=== PATIENT | female | born 1965 | race Caucasian/White ===

== ENCOUNTER 2016-10-28 14:39 | Emergency (ER) | payer MEDICAID ==
[~2016-10-28] VITALS: Ht 154.9 cm; Wt 78.5 kg
[2016-10-28 14:56] VITALS: BP_SYST 157
[2016-10-28 16:21] VITALS: BP_SYST 142
== END 2016-10-28 16:19 | disposition home or self-care (01) ==
LOC: SED 14:39
DX: L03.116 Cellulitis of left lower limb (principal)
CPT/HCPCS: 99284

== ENCOUNTER 2016-11-29 15:15 | Emergency (ER) | payer MEDICAID ==
[~2016-11-29] VITALS: Ht 154.9 cm; Wt 73.5 kg
[2016-11-29 15:23] VITALS: BP 162/97; PULSE 96; RESP 18; TEMP 98.3; O2SAT 98
[2016-11-29] MEDS ORDERED: NACL 0.9% 500 ML IV ONE (16:00)
[2016-11-29] MEDS ORDERED: PANTOPRAZOLE SODIUM 40 MG/VIAL (PROTONIX) IVP ONE (16:00)
[2016-11-29 16:15] LABS: BILIRUBIN,URINE NEGATIVE (NEGATIVE); BLOOD, URINE NEGATIVE (NEGATIVE); CLARITY/URINE SL HAZY (CLEAR); COLOR,URINE YELLOW (YELLOW); GLUCOSE,URINE NEGATIVE (NEGATIVE); KETONES,URINE NEGATIVE (NEGATIVE); LEUKOCYTE ESTERASE ,URINE NEGATIVE (NEGATIVE); NITRITE, URINE NEGATIVE (NEGATIVE); PH,URINE 5.5 (5.0-8.0); PROTEIN URINE NEGATIVE (NEGATIVE); UROBILINOGEN,URINE 0.2 (0.2-1.0)
[2016-11-29] MEDS ORDERED: MAG HYDROX/AL HYDROX/SIMETH 30 ML, LIDOCAINE VISCOUS 2% 15ML (PO) 10 ML, BELLADONNA ALK... PO ONE ×3 (16:15)
[2016-11-29 16:23] LABS: BASOPHILS % (AUTO) 0.6 % (0.0-2.0); EOSINOPHILS # (AUTO) 0.1 K/uL (0.0-0.4); EOSINOPHILS % (AUTO) 2.1 % (0.0-4.0); HEMATOCRIT 38.8 % (36-48); HEMOGLOBIN 13.1 g/dL (12.0-16.0); LYMPHOCYTES # (AUTO) 1.3 K/uL (1.0-5.5); LYMPHOCYTES % (AUTO) 26.2 % (20.5-51.5); MEAN CORPUSCULAR HEMOGLOBIN 28 pg (27-31); MEAN CORPUSCULAR HGB CONC 34 % (32-36); MEAN CORPUSCULAR VOLUME 84 fL (79.0-98.0); MONOCYTES # (AUTO) 0.4 K/uL (0.0-1.0); MONOCYTES % (AUTO) 8.3 % (1.7-9.3); NEUTROPHILS # (AUTO) 3.2 K/uL (1.8-7.7); NEUTROPHILS % (AUTO) 62.8 % (40.0-70.0); PLATELET COUNT (AUTO) 418 K/uL (130-430); RED BLOOD CELL COUNT(AUTO) 4.64 MIL/uL (4.2-6.2); RED CELL DISTRIBUTION WIDTH 12.1 % (9.0-15.0)
[2016-11-29 16:48] LABS: CALCIUM 9.2 mg/dL (8.4-11.0); CREATININE 0.78 mg/dL (0.55-1.30); POTASSIUM 3.8 mmol/L (3.5-5.1)
[2016-11-29 16:52] LABS: ALBUMIN 3.8 g/dL (3.4-4.8); TOTAL BILIRUBIN 0.3 mg/dL (0.0-1.0); TOTAL PROTEIN, SERUM 7.7 g/dL (6.4-8.3)
[2016-11-29 17:20] VITALS: BP 142/82; PULSE 86; RESP 18; TEMP 98.3; O2SAT 98
== END 2016-11-29 17:20 | disposition home or self-care (01) ==
LOC: SED 15:15
DX: R10.13 Epigastric pain (principal); R10.12 Left upper quadrant pain; I10 Essential (primary) hypertension; Z90.711 Acquired absence of uterus with remaining cervical stump
CPT/HCPCS: 36415; 74176; 80053; 81003; 81025; 83605; 83690; 85025; 87040; 96361; 96374; 99285; C9113; J2001; J7030

== ENCOUNTER 2017-05-19 14:06 | Inpatient (IN) | payer MEDICAID ==
[~2017-05-19] VITALS: Ht 154.9 cm; Wt 73.5 kg
[2017-05-19 14:13] VITALS: BP_SYST 154
[2017-05-19] MEDS ORDERED: ASPIRIN 81 MG TAB.CHEW PO ONE (14:30)
[2017-05-19 14:37] LABS: BASOPHILS # (AUTO) 0.1 K/uL (0.0-0.2); BASOPHILS % (AUTO) 1.6 % (0.0-2.0); EOSINOPHILS # (AUTO) 0.1 K/uL (0.0-0.4); EOSINOPHILS % (AUTO) 1.1 % (0.0-4.0); HEMATOCRIT 38.7 % (36-48); LYMPHOCYTES # (AUTO) 1.1 K/uL (1.0-5.5); LYMPHOCYTES % (AUTO) 14.7 % (20.5-51.5); MEAN CORPUSCULAR HEMOGLOBIN 28 pg (27-31); MEAN CORPUSCULAR HGB CONC 34 % (32-36); MEAN CORPUSCULAR VOLUME 84 fL (79.0-98.0); MONOCYTES # (AUTO) 0.5 K/uL (0.0-1.0); MONOCYTES % (AUTO) 6.9 % (1.7-9.3); NEUTROPHILS # (AUTO) 5.6 K/uL (1.8-7.7); NEUTROPHILS % (AUTO) 75.7 % (40.0-70.0); PLATELET COUNT (AUTO) 419 K/uL (130-430); RED BLOOD CELL COUNT(AUTO) 4.61 MIL/uL (4.2-6.2); RED CELL DISTRIBUTION WIDTH 12.6 % (9.0-15.0); WHITE BLOOD COUNT (AUTO) 7.4 K/uL (4.8-10.8)
[2017-05-19 15:12] LABS: CALCIUM 8.8 mg/dL (8.4-11.0); CREATININE 0.77 mg/dL (0.55-1.30); POTASSIUM 3.7 mmol/L (3.5-5.1)
[2017-05-19 15:21] LABS: INR 0.9 (0.8-1.2); PROTHROMBIN TIME 9.2 SECS (9.5-12.5)
[2017-05-19] MEDS ORDERED: INSULIN REGULAR, HUMAN 100 UNITS/ML, 10 ML VIAL (novoLIN R) SUBCUT PRN (15:45)
[2017-05-19 16:12] VITALS: BP_SYST 134
[2017-05-19] MEDS ORDERED: GLUCOSE 15 GM GEL (in 37.5 GM TUBE) PO PRN ×2 (16:30)
[2017-05-19] MEDS ORDERED: DEXTROSE 50%-WATER 50 ML DISP.SYRIN IVP PRN ×2 (16:30)
[2017-05-19] MEDS ORDERED: NITROGLYCERIN 0.4 MG TAB.SUBL SL PRN (19:15)
[2017-05-19] MEDS ORDERED: ZOLPIDEM TARTRATE 5 MG TABLET PO PRN (19:15)
[2017-05-19] MEDS ORDERED: ACETAMINOPHEN 325 MG TABLET PO PRN ×2 (19:15→20:00)
[2017-05-19] MEDS ORDERED: LOSA25TA3 PO (19:25)
[2017-05-19 20:00] VITALS: BP_SYST 120
[2017-05-19] MEDS: FAMOTIDINE 20 MG TABLET PO SCH (20:20)
[2017-05-19] MEDS: LOSARTAN POTASSIUM 50 MG TABLET (COZAAR) PO SCH (20:33)
[2017-05-19] MEDS ORDERED: LOSARTAN POTASSIUM 50 MG TABLET (COZAAR) PO SCH (21:00)
[2017-05-20] VITALS: BP_SYST 118
[2017-05-20 04:00] VITALS: BP_SYST 137
[2017-05-20 07:07] LABS: THYROID STIMULATING HORMONE 1.38 uIu/mL (0.36-3.74)
[2017-05-20 07:49] LABS: CHOLESTEROL 261 mg/dL (<200); HDL CHOLESTEROL 57 mg/dL (>55); LDL CHOLESTEROL 171 mg/dL (<100); TRIGLYCERIDES 164 mg/dL (30-150)
[2017-05-20 08:00] VITALS: BP_SYST 134
[2017-05-20] MEDS ORDERED: ASPIRIN 81 MG TABLET(ECOTRIN) PO SCH (09:00)
[2017-05-20] MEDS: FAMOTIDINE 20 MG TABLET PO SCH (09:20)
[2017-05-20] MEDS: LOSARTAN POTASSIUM 50 MG TABLET (COZAAR) PO SCH (09:20)
[2017-05-20 13:06] VITALS: BP_SYST 117
[2017-05-20] MEDS ORDERED: FAMO20TA98 PO (13:30)
[2017-05-20 13:41] VITALS: BP_SYST 120
[2017-05-20 16:03] VITALS: BP_SYST 132
== END 2017-05-20 16:14 | disposition home or self-care (01) | DRG 203 ==
LOC: SED 14:06 → STU 15:40
PROVIDERS: ADMIT Internal Medicine; ATTEND Internal Medicine
DX: R07.89 Other chest pain (principal); I10 Essential (primary) hypertension; K21.9 Gastro-esophageal reflux disease without esophagitis; E78.5 Hyperlipidemia, unspecified; E66.9 Obesity, unspecified; Z68.30 Body mass index [BMI] 30.0-30.9, adult; Z82.49 Family history of ischemic heart disease and other diseases of the circulatory system; Z79.899 Other long term (current) drug therapy; Z90.722 Acquired absence of ovaries, bilateral; Z90.710 Acquired absence of both cervix and uterus
CPT/HCPCS: 36415; 71010; 80048; 80061; 82962; 83735-TC; 83880; 84443-TC; 84484; 85025; 85379; 85610-TC; 85730-TC; 93005; 93306; 99285; J1815

== ENCOUNTER 2019-11-05 12:18 | Emergency (ER) | payer MEDICAID ==
[~2019-11-05] VITALS: Ht 154.9 cm; Wt 68.9 kg
[~2019-11-05 12:18] MED LIST: FAMO-132 PO; LOSA25TA3 PO
[2019-11-05 12:36] VITALS: BP_SYST 131
[2019-11-05 13:25] LABS: BASOPHILS % (AUTO) 0.4 % (0.0-2.0); EOSINOPHILS # (AUTO) 0.1 K/uL (0.0-0.4); EOSINOPHILS % (AUTO) 1.6 % (0.0-4.0); HEMATOCRIT 37.4 % (36-48); HEMOGLOBIN 12.5 g/dL (12.0-16.0); LYMPHOCYTES # (AUTO) 1.3 K/uL (1.0-5.5); LYMPHOCYTES % (AUTO) 25.4 % (20.5-51.5); MEAN CORPUSCULAR HEMOGLOBIN 28 pg (27-31); MEAN CORPUSCULAR HGB CONC 33 % (32-36); MEAN CORPUSCULAR VOLUME 83 fL (79.0-98.0); MONOCYTES # (AUTO) 0.3 K/uL (0.0-1.0); MONOCYTES % (AUTO) 5.8 % (1.7-9.3); NEUTROPHILS # (AUTO) 3.5 K/uL (1.8-7.7); NEUTROPHILS % (AUTO) 66.8 % (40.0-70.0); PLATELET COUNT (AUTO) 511 K/uL (130-430); RED BLOOD CELL COUNT(AUTO) 4.49 MIL/uL (4.2-6.2); RED CELL DISTRIBUTION WIDTH 12.7 % (9.0-15.0); WHITE BLOOD COUNT (AUTO) 5.3 K/uL (4.8-10.8)
[2019-11-05 13:38] LABS: CALCIUM 8.6 mg/dL (8.4-11.0); CREATININE 0.74 mg/dL (0.55-1.30); POTASSIUM 4.2 mmol/L (3.5-5.1)
[2019-11-05 13:52] LABS: ALBUMIN 3.5 g/dL (3.4-4.8); TOTAL BILIRUBIN 0.2 mg/dL (0.0-1.0)
[2019-11-05 14:52] VITALS: BP_SYST 154
== END 2019-11-05 14:54 | disposition home or self-care (01) ==
LOC: SED 12:18
DX: L02.31 Cutaneous abscess of buttock (principal); I10 Essential (primary) hypertension; Z88.8 Allergy status to other drugs, medicaments and biological substances; Z79.899 Other long term (current) drug therapy
CPT/HCPCS: 36415; 80053; 83605; 85025; 87040; 96365; 99284; J1956

== ENCOUNTER 2019-11-11 16:51 | Emergency (ER) | payer MEDICAID ==
[~2019-11-11] VITALS: Ht 162.6 cm; Wt 79.4 kg
[2019-11-11 16:52] VITALS: BP_SYST 146
[2019-11-11] MEDS ORDERED: LIDOCAINE/EPI 1% 1:100000 20 ML VIAL INJ ONE (17:15)
[2019-11-11 17:56] VITALS: BP_SYST 131
== END 2019-11-11 17:56 | disposition home or self-care (01) ==
LOC: SED 16:51
DX: L02.31 Cutaneous abscess of buttock (principal); I10 Essential (primary) hypertension; Z88.8 Allergy status to other drugs, medicaments and biological substances; Z79.899 Other long term (current) drug therapy
CPT/HCPCS: 99284

== ENCOUNTER 2019-11-21 17:37 | Emergency (ER) | payer MEDICAID ==
[~2019-11-21] VITALS: Ht 152.4 cm; Wt 68.0 kg
[2019-11-21 17:40] VITALS: BP_SYST 133
--- NOTE | 2019-11-21 17:40 | NUR ---
Patient to ER bed 3 to gown for evaluation. Side rails up.
--- NOTE | 2019-11-21 17:45 | NUR ---
Patient presented to ER C/O adverse reaction to medication. Patient ambulatory to ER, A&Ox4, afebrile, 2 cm wound to left buttocks, pain 07/27, denies N/V/D. Viola juares states she was seen in [facility] ER 11/11/2019 for abcess, given PO keflex & Bactrim. Patient states skin irritation after PO Bactrim.
--- NOTE | 2019-11-21 19:00 | NUR ---
ER Dr. ARAGON at bedside examining patient.
[2019-11-21 19:19] VITALS: BP_SYST 133
--- NOTE | 2019-11-21 19:20 | NUR ---
Patient given written and verbal discharge instructions and verbalizes understanding. ER MD discussed with patient the results and treatment provided. Patient in stable condition. ID arm band removed. Rx of BENADRYL given. Patient educated on pain management and to follow up with PMD. Pain Scale 1/10. Opportunity for questions provided and answered. Medication side effect fact sheet provided.
== END 2019-11-21 19:20 | disposition home or self-care (01) ==
LOC: SED 17:37
DX: L02.31 Cutaneous abscess of buttock (principal); R21 Rash and other nonspecific skin eruption; I10 Essential (primary) hypertension; Z90.710 Acquired absence of both cervix and uterus; Z88.8 Allergy status to other drugs, medicaments and biological substances
CPT/HCPCS: 99282

== ENCOUNTER 2019-11-29 17:38 | Emergency (ER) | payer MEDICAID ==
[~2019-11-29] VITALS: Ht 154.9 cm; Wt 70.8 kg
[2019-11-29 17:47] VITALS: BP_SYST 145
== END 2019-11-29 18:14 | disposition home or self-care (01) ==
LOC: SED 17:38
DX: S01.402D Unspecified open wound of left cheek and temporomandibular area, subsequent encounter (principal); I10 Essential (primary) hypertension; Z90.710 Acquired absence of both cervix and uterus; Z88.2 Allergy status to sulfonamides; X58.XXXD Exposure to other specified factors, subsequent encounter
CPT/HCPCS: 99281

== ENCOUNTER 2020-08-14 21:00 | Emergency (ER) | payer MEDICAID ==
[~2020-08-14] VITALS: Ht 152.4 cm; Wt 65.8 kg
[2020-08-14 21:00] VITALS: BP_SYST 162
[2020-08-14] MEDS ORDERED: DIPHENHYDRAMINE INJ 50 MG/ML VIAL IM ONE (21:30)
[2020-08-14] MEDS ORDERED: FAMOTIDINE 20 MG TABLET PO ONE (21:30)
[2020-08-14] MEDS ORDERED: methylPREDNISolone SOD SUCC/PF 62.5 MG/ML VIAL ONE (21:30)
[2020-08-14] MEDS ORDERED: methylPREDNISolone SOD SUCC/PF 62.5 MG/ML VIAL IM ONE (21:30)
[2020-08-14 21:45] VITALS: BP_SYST 151
== END 2020-08-14 21:44 | disposition home or self-care (01) ==
LOC: SED 21:00
DX: T78.40XA Allergy, unspecified, initial encounter (principal); I10 Essential (primary) hypertension; Z88.2 Allergy status to sulfonamides; Z88.8 Allergy status to other drugs, medicaments and biological substances; X58.XXXA Exposure to other specified factors, initial encounter
CPT/HCPCS: 96372; 99284; J1200; J2930

== ENCOUNTER 2020-11-18 18:58 | Emergency (ER) | payer MEDICAID ==
[~2020-11-18] VITALS: Ht 154.9 cm; Wt 68.0 kg
[2020-11-18 18:58] VITALS: BP_SYST 146
[2020-11-18] MEDS ORDERED: TRAM50TA2 PO (20:53)
[2020-11-18 21:09] VITALS: BP_SYST 132
== END 2020-11-18 21:09 | disposition home or self-care (01) ==
LOC: SED 18:58
DX: S93.401A Sprain of unspecified ligament of right ankle, initial encounter (principal); I10 Essential (primary) hypertension; Z88.2 Allergy status to sulfonamides; Z88.8 Allergy status to other drugs, medicaments and biological substances; X50.1XXA Overexertion from prolonged static or awkward postures, initial encounter; Y93.89 Activity, other specified; Y92.89 Other specified places as the place of occurrence of the external cause; Y99.8 Other external cause status
CPT/HCPCS: 99283